=== PATIENT | male | born 1965 | race Two or more races ===

== ENCOUNTER 2020-07-03 16:47 | Emergency (ER) | payer OTHER ==
[~2020-07-03] VITALS: Ht 172.7 cm; Wt 75.0 kg
[~2020-07-03 16:47] MED LIST: ATOR-2 PO; CEFD300C37 PO; ENOX80SY5 SQ; PANT40TA3 PO; TICA90TA PO; WARF-36 PO
[2020-07-03] MEDS ORDERED: CARV3.122 PO (16:54)
[2020-07-03] MEDS ORDERED: WARF-36 PO (16:54)
--- NOTE | 2020-07-03 16:55 | NUR ---
PT BIB [facility] FOR CHEST PAIN. PT STATES HE HAD FOOD STUCK CAUSING CHEST PAIN. SINCE RESOLVED UPON ARRIVAL. DENIES CP. HX OF STEMI AND STENT. ON COREG AND WARFARIN 04/20. PARTS SALESPERSON IN PLACE. [facility] GUARDS AT BEDSIDE. PT IN CUFFS.
[2020-07-03] MEDS ORDERED: MAALOX/HYOSCYAMINE/LIDOCAINE 45 ML BTL PO ONE (17:30)
[2020-07-03] MEDS ORDERED: MAALOX/HYOSCYAMINE/LIDOCAINE 45 ML BTL ONE (17:32)
[2020-07-03 17:48] LABS: BASOPHILS % (AUTO) 1 % (0-1); EOSINOPHILS % (AUTO) 3 % (1-7); LYMPHOCYTES % (AUTO) 26 % (22-44); MEAN CORPUSCULAR HEMOGLOBIN 29.8 pg (27.5-34.5); MEAN CORPUSCULAR HGB CONC 33.4 g/dL (33.2-36.2); MEAN PLATELET VOLUME 7.3 fL (7.4-10.4); MONOCYTES % (AUTO) 13 % (2-9); NEUTROPHILS % (AUTO) 57 % (42-75); PLATELET COUNT 282 x10^3/uL (130-400); RED BLOOD COUNT 3.98 x10^6/uL (4.38-5.82); RED CELL DISTRIBUTION WIDTH 14.5 % (9.4-14.8)
[2020-07-03 17:51] LABS: MD NO
[2020-07-03 17:59] LABS: ALANINE AMINOTRANSFERASE 41 U/L (12-78); ALBUMIN 3.7 g/dL (3.4-5.0); ANION GAP 6 mmol/L (5-15); CALCIUM 8.4 mg/dL (8.5-10.1); CHLORIDE 111 mmol/L (98-107); CREATININE 0.77 mg/dL (0.7-1.3)
[2020-07-03 18:04] LABS: ALKALINE PHOSPHATASE 102 U/L (45-117); BILIRUBIN,TOTAL 0.4 mg/dL (0.2-1.0); INTERNATIONAL NORMALIZED RATIO 1.11 (0.93-1.1); PROTHROMBIN TIME 11.9 Seconds (9.6-11.5); TOTAL PROTEIN 7.6 g/dL (6.4-8.2); TROPONIN I < 0.015 ng/mL (0.000-0.045)
[2020-07-03 18:39] VITALS: BP 123/85
--- NOTE | 2020-07-03 18:39 | NUR ---
Patient/Caregiver given discharge instructions and they have confirmed that they understand the instructions. Patient ambulatory with steady gait.
== END 2020-07-03 18:41 | disposition home or self-care (01) ==
LOC: ED 18:35
DX: K21.9 Gastro-esophageal reflux disease without esophagitis (principal); D64.9 Anemia, unspecified; I25.2 Old myocardial infarction; R11.2 Nausea with vomiting, unspecified; R07.89 Other chest pain; R10.13 Epigastric pain
CPT/HCPCS: 36415; 71045; 80053; 84484; 85025; 85610; 93005; 99285